=== PATIENT | male | born 1975 | race Caucasian/White ===

== ENCOUNTER 2016-08-12 23:41 | Emergency (ER) | payer MEDICAID ==
[~2016-08-12] VITALS: Ht 170.2 cm; Wt 81.8 kg
[~2016-08-12 23:41] MED LIST: LISI1TAB PO
[2016-08-13] MEDS ORDERED: PERTUSS(ACELL),DIPH,TET VAC/PF 0.5 ML VIAL IM ONE (00:45)
[2016-08-13 01:34] VITALS: BP 121/80
== END 2016-08-13 01:41 | disposition home or self-care (01) ==
LOC: EMS 23:43
DX: S83.91XA Sprain of unspecified site of right knee, initial encounter (principal); S40.812A Abrasion of left upper arm, initial encounter; I10 Essential (primary) hypertension; F17.210 Nicotine dependence, cigarettes, uncomplicated; X58.XXXA Exposure to other specified factors, initial encounter; Y93.39 Activity, other involving climbing, rappelling and jumping off; Y92.89 Other specified places as the place of occurrence of the external cause; Y99.8 Other external cause status
CPT/HCPCS: 90471; 90715; 96372; 99284

== ENCOUNTER 2023-07-26 17:17 | Emergency (ER) | payer MEDICAID ==
[~2023-07-26] VITALS: Ht 170.2 cm; Wt 84.1 kg
[2023-07-26] MEDS: LIDOCAINE 1% 10 ML VIAL ID ONE (18:17)
[2023-07-26 18:19] LABS: BASOPHILS % (AUTO) 0.8 % (0.0-2.0); EOSINOPHILS % (AUTO) 2.8 % (1.0-6.0); HEMATOCRIT 24.9 % (41-53); HEMOGLOBIN 8.5 g/dL (13.5-17.5); LYMPHOCYTES # (AUTO) 1.6 K/uL (1.0-4.8); LYMPHOCYTES % (AUTO) 42.3 % (22.0-44.0); MEAN CORPUSCULAR HEMOGLOBIN 35.4 pg (26.0-34.0); MEAN CORPUSCULAR HGB CONC 33.9 G/dL (31.0-37.0); MEAN CORPUSCULAR VOLUME 105 fL (80-100); MONOCYTES # (AUTO) 0.3 K/uL (0.1-1.0); MONOCYTES % (AUTO) 8.3 % (2.0-9.0); NEUTROPHILS # (AUTO) 1.8 K/uL (1.8-7.7); NEUTROPHILS % (AUTO) 45.8 % (40.0-70.0); PLATELET COUNT (AUTO) 232 K/uL (150-450); RED BLOOD CELL COUNT(AUTO) 2.39 MIL/uL (4.50-5.90); RED CELL DISTRIBUTION WIDTH 24.2 % (11.5-14.5); WHITE BLOOD COUNT (AUTO) 3.9 K/uL (4.5-11.0)
[2023-07-26 18:30] LABS: ANION GAP 9 mmol/L (8-16); CALCIUM, TOTAL 9.1 mg/dL (8.8-10.5); CARBON DIOXIDE 29 mmol/L (22-29); CHLORIDE 99 mmol/L (98-107); CREATININE 0.56 mg/dL (0.60-1.30); GLOMERULAR FILTR. RATE CALC > 60 mL/min (>60); GLUCOSE,RANDOM 113 mg/dL (70-110); POTASSIUM 3.8 mmol/L (3.5-5.1); SODIUM SERUM 137 mmol/L (136-145); UREA NITROGEN, BLOOD 15 mg/dL (7-18)
[2023-07-26 18:38] LABS: ALANINE AMINOTRANSFERASE 24 U/L (12-78); ALBUMIN 3.4 g/dL (3.4-5.0); ALKALINE PHOSPHATASE 109 U/L (46-116); ASPARTATE AMINOTRANSFERASE 19 U/L (15-37); BILIRUBIN,TOTAL 0.4 mg/dL (0.1-1.0); TOTAL PROTEIN, SERUM 7.7 g/dL (6.4-8.2)
[2023-07-26 18:55] LABS: RBC MORPHOLOGY COMMENT ABNORMAL RBC MORPH
[2023-07-26] MEDS ORDERED: POVIDONE-IODINE 10% 15 ML SOLUTION UD ONE (19:45)
[2023-07-26] MEDS: SULFAMETHOX/TRIMETH DS 800-160 MG/TABLET PO ONE (20:01)
[2023-07-26] MEDS: HYDROCODONE/ACETAMINOPHEN 5-325 MG TABLET PO ONE (20:01)
[2023-07-26] MEDS ORDERED: SULF-261 PO (21:29)
[2023-07-26 21:33] VITALS: BP 108/64; PULSE 88; RESP 16; TEMP 98.2
== END 2023-07-26 21:43 | disposition home or self-care (01) ==
LOC: EMS 17:17
DX: L02.416 Cutaneous abscess of left lower limb (principal); I10 Essential (primary) hypertension; F17.210 Nicotine dependence, cigarettes, uncomplicated; Z86.19 Personal history of other infectious and parasitic diseases
CPT/HCPCS: 99283; 10060; 80053; 85025; 36415; J3490

== ENCOUNTER 2024-07-02 20:11 | Emergency (ER) | payer MEDICAID ==
[~2024-07-02] VITALS: Ht 170.2 cm; Wt 77.9 kg
[~2024-07-02 20:11] MED LIST changes: -LISI1TAB PO; +SULF-261 PO
[2024-07-02 20:20] VITALS: BP 114/70; PULSE 82; RESP 18; TEMP 98.6; O2SAT 94
[2024-07-02 20:28] LABS: COVID AG,FIA SOURCE NASAL SWAB
[2024-07-02 21:05] LABS: SARS-COV2 (COVID) ANTIGEN,FIA Negative (Negative)
[2024-07-02 21:06] LABS: INFLUENZA TYPE A NEGATIVE FOR TYPE A (NEGATIVE); INFLUENZA TYPE B NEGATIVE FOR TYPE B (NEGATIVE)
== END 2024-07-03 01:36 | disposition left against medical advice (07) ==
LOC: EMS 20:11
DX: F11.90 Opioid use, unspecified, uncomplicated (principal); Z20.822 Contact with and (suspected) exposure to COVID-19; Z53.21 Procedure and treatment not carried out due to patient leaving prior to being seen by health care provider
CPT/HCPCS: 87804